=== PATIENT | female | born 1985 | race Caucasian/White ===

== ENCOUNTER 2022-10-18 04:50 | Inpatient (IN) | payer BC ==
[2022-10-18] MEDS ORDERED: ELECTROLYTE-148 SOLN 1,000 ML IV SCH ×4 (06:00→16:45)
[2022-10-18 06:19] VITALS: BMI 26.4
[2022-10-18 06:43] LABS: BASO % 0.3 % (0-2.0); EOS % 0.3 % (0-4.5); HEMATOCRIT 35.8 % (32.4-45.2); HEMOGLOBIN 11.7 GM/dL (10.7-15.3); LYMPH % 14.7 % (8-40); MCH 29.3 pg (25.7-33.7); MCHC 32.7 g/dl (32.0-36.0); MEAN CELL VOLUME 89.7 fl (80-96); MEAN PLT VOLUME 8.9 fl (7.5-11.1); MONO % 8.3 % (3.8-10.2); NEUT % 76.4 % (42.8-82.8); PLATELET COUNT 254 10^3/uL (134-434); RBC 3.99 M/mm3 (3.60-5.2); RDW 13.5 % (11.6-15.6); WHITE BLOOD COUNT 12.1 K/mm3 (4.0-10.0)
[2022-10-18 06:45] LABS: INR 0.92 (0.83-1.09); PROTHROMBIN TIME (PATIENT) 10.7 SEC (9.7-13.0)
[2022-10-18 06:48] LABS: ACTIVATED PTT 24.2 SECONDS (25.2-36.5)
[2022-10-18] MEDS ORDERED: ELECTROLYTE-148 SOLN 500 ML IV ONE ×2 (07:15→07:45)
[2022-10-18 07:21] LABS: POTASSIUM 4.8 mmol/L (3.5-5.1)
[2022-10-18 07:22] LABS: CALCIUM 8.7 mg/dL (8.5-10.1)
[2022-10-18 07:23] LABS: BLOOD UREA NITROGEN 11.8 mg/dL (7-18)
[2022-10-18 07:26] LABS: CREATININE 0.8 mg/dL (0.55-1.3)
[2022-10-18] MEDS ORDERED: FENTANYL/BUPIVACAINE/NS/PF - PCEA - 50 ML DISP.SYRIN EP ONE ×3 (07:37→16:11)
[2022-10-18] MEDS ORDERED: LIDO 2%/EPI 1:200000 PRESRVFRE (20 ML SDVIAL) ONE (07:52)
[2022-10-18] MEDS ORDERED: BUPIVACAINE HCL/PF 0.25% (2.5MG/ML) 10 ML VIAL ONE ×3 (07:52→16:46)
[2022-10-18] MEDS: FENTANYL/BUPIVACAINE/NS/PF - PCEA - 50 ML DISP.SYRIN EP SCH ×3 (08:10→16:20)
[2022-10-18] MEDS ORDERED: FENTANYL/BUPIVACAINE/NS/PF - PCEA - 50 ML DISP.SYRIN EP SCH ×2 (08:30→16:55)
[2022-10-18] MEDS ORDERED: NALOXONE HCL 0.4 MG/ML VIAL IVPUSH PRN (08:30)
[2022-10-18 12:37] LABS: HIV INTERPRETATION NEGATIVE (NEGATIVE)
[2022-10-18] MEDS ORDERED: OXYTOCIN 30 UNITS in 0.9% NS 30 UNIT/500 ML INFUS.BAG IVPB ONE (13:41)
[2022-10-18] MEDS ORDERED: OXYTOCIN 30 UNITS in 0.9% NS 30 UNIT/500 ML INFUS.BAG IVPB SCH (13:45)
[2022-10-18] MEDS ORDERED: FENTANYL CITRATE/PF 50 MCG/ML VIAL ONE ×2 (14:14→16:45)
[2022-10-18] MEDS ORDERED: OXYTOCIN 20 UNITS in 0.9% NS 20 UNIT/1,000 ML INFUS.BAG IV ONE (19:08)
[2022-10-18 21:17] LABS: CORD BASE EXCESS -7.1 mmol/L (0-2); CORD HCO3 18.8 mmHg (20-29); CORD PCO2 39.4 mmHg (30-78); CORD pH 7.296 (7.14-7.44)
[2022-10-18] MEDS ORDERED: BENZOCAINE 28 GM HEMORRHOIDAL OINTMENT TP PRN (21:18)
[2022-10-18] MEDS ORDERED: METHYLERGONOVINE MALEATE 0.2 MG/1 ML AMP IM PRN (21:18)
[2022-10-18] MEDS ORDERED: BISACODYL 10 MG SUPP.RECT RC PRN (21:18)
[2022-10-18] MEDS ORDERED: WITCH HAZEL 50% (TUCKS) 40 PAD/JAR PAD TP PRN (21:18)
[2022-10-18] MEDS ORDERED: BENZOCAINE 20% 57 GM BOTTLE TP PRN (21:18)
[2022-10-18 21:19] LABS: CORD BASE EXCESS -7.4 mmol/L (0-2); CORD HCO3 20.4 mmHg (20-29); CORD PCO2 49.9 mmHg (30-78); CORD pH 7.23 (7.14-7.44)
[2022-10-18] MEDS ORDERED: OXYTOCIN 20 UNITS in 0.9% NS 20 UNIT/1,000 ML INFUS.BAG IV SCH (21:30)
[2022-10-19] MEDS: oxyCODONE HCL 5 MG TABLET PO PRN ×4 (00:19→23:38)
[2022-10-19] MEDS: ACETAMINOPHEN 325 MG TABLET (FP) PO PRN ×5 (02:39→19:49)
[2022-10-19 08:21] LABS: HEMATOCRIT 29.9 % (32.4-45.2); HEMOGLOBIN 9.6 GM/dL (10.7-15.3); MCH 28.9 pg (25.7-33.7); MCHC 32.3 g/dl (32.0-36.0); MEAN CELL VOLUME 89.4 fl (80-96); MEAN PLT VOLUME 7.6 fl (7.5-11.1); PLATELET COUNT 230 10^3/uL (134-434); RBC 3.34 M/mm3 (3.60-5.2); RDW 14.1 % (11.6-15.6); WHITE BLOOD COUNT 24.4 K/mm3 (4.0-10.0)
[2022-10-19] MEDS ORDERED: DOCUSATE SODIUM 100 MG CAPSULE (FP) PO PRN (08:37)
[2022-10-19 09:07] LABS: ANISOCYTOSIS 0; MACROCYTOSIS 0
[2022-10-19] MEDS ORDERED: SENNOSIDES/DOCUSATE COMBO (SENNA PLUS) TABLET (UD) PO PRN (22:00)
[2022-10-20] MEDS: oxyCODONE HCL 5 MG TABLET PO PRN ×2 (05:19→12:08)
[2022-10-20 07:34] LABS: BASO % 0.1 % (0-2.0); EOS % 0.4 % (0-4.5); HEMATOCRIT 24.5 % (32.4-45.2); HEMOGLOBIN 8.2 GM/dL (10.7-15.3); LYMPH % 9.6 % (8-40); MCHC 33.3 g/dl (32.0-36.0); MEAN CELL VOLUME 90.1 fl (80-96); MEAN PLT VOLUME 7.6 fl (7.5-11.1); MONO % 6.4 % (3.8-10.2); NEUT % 83.5 % (42.8-82.8); PLATELET COUNT 195 10^3/uL (134-434); RBC 2.72 M/mm3 (3.60-5.2); WHITE BLOOD COUNT 16.8 K/mm3 (4.0-10.0)
[2022-10-20] MEDS: ACETAMINOPHEN 325 MG TABLET (FP) PO PRN (09:25)
[2022-10-20 12:00] VITALS: BP 119/58; PULSE 64; RESP 17; TEMP 97.9
== END 2022-10-20 14:45 | disposition home or self-care (01) | DRG 807 ==
LOC: JDEL 04:50 → JLDR 05:25 → J3W 23:45
PROVIDERS: ADMIT Obstetrics & Gynecology; ATTEND Obstetrics & Gynecology
PROC: 10E0XZZ Delivery of Products of Conception, External Approach (ICD-10-PCS; principal; 2022-10-18)
PROC: 0W8NXZZ Division of Female Perineum, External Approach (ICD-10-PCS; 2022-10-18)
DX: O80 Encounter for full-term uncomplicated delivery (principal); Z37.0 Single live birth; Z3A.40 40 weeks gestation of pregnancy
CPT/HCPCS: 36415; 36600; 80048; 82803; 85025; 85610; 85730; 86780; 86850; 86900; 86901; 87389